=== PATIENT | male | born 1955 | race Caucasian/White ===

== ENCOUNTER 2017-11-02 15:51 | Emergency (ER) | payer BC, SELFPAY ==
[2017-11-02 15:53] VITALS: BP 177/110; PULSE 59; RESP 18; TEMP 37.1; O2SAT 99; BMI 25.0
--- NOTE | 2017-11-02 17:06 | CT_ITS ---
STUDY: CT ABDOMEN AND PELVIS WITHOUT CONTRAST REASON FOR EXAM: Male, 62 years old. Left flank pain. RADIATION DOSAGE (If Supplied By Facility): CTDIvol = ( 6.83 ) mGy, DLP = ( 324.01 ) mGycm TECHNIQUE: Transaxial images were obtained from the dome of the diaphragm to the symphysis pubis without oral contrast, and without intravenous contrast. Sagittal and coronal images were reconstructed. Individualized dose optimization techniques were used for this CT. COMPARISON: None. FINDINGS: Within the lingula there is a 3.7 cm subpleural nodule. There are coronary artery calcifications present. Normal liver. Normal gallbladder and extrahepatic biliary system. Normal spleen. Normal pancreas. Normal bilateral adrenal glands. Normal right kidney. Normal left kidney. There is a small hiatal hernia. Normal small intestine. Normal colon. The appendix is visualized and appears normal. There is diffuse atherosclerotic calcification of the abdominal aorta, without a demonstrated aneurysm. Normal inferior vena cava. Normal retroperitoneum. Normal urinary bladder. Normal abdominal wall. There are diffuse degenerative changes of the visualized lumbar spine. CT/Abdomen/Pelvis without Cont IMPRESSION: No acute process identified. Atherosclerosis. Small hiatal hernia. Electronically Signed: Yanna Hamilton MD at 17:56 EST Tel , Service support ,
[2017-11-02 18:12] LABS: Absolute Lymphocyte Count 2.23 X10^3/ul (0.83-4.51); Absolute Neutrophil Count 3.9 X10^3/uL (2.0-7.7); Basophil# 0.03 X10^3/uL; Basophil% 0.4 % (0-1); Eosinophils% 2.9 % (0-5); Hemoglobin 15.5 g/dl (13.0-16.5); Lymphocyte # 2.23 X10^3/ul (4.0); Lymphocyte % 32.2 % (19-41); Mean Corp Hgb Conc 33.7 g/gl (32-36); Mean Corpuscular Hgb 33.4 pg (27.0-32.0); Mean Corpuscular Volume 99.1 fL (80-94); Mean Platelet Vol. 12.3 fl (6.2-12.0); Monocyte# 0.59 X10^3/uL; Monocyte% 8.5 % (0-10); Neutrophil # 3.86 X10^3/uL (2.7-7.7); Neutrophil % 55.9 % (47-70); Platelet Count 167 K/mm3 (150-450); RBC Distribution Width CV 12.7 % (11.6-14.6); RBC Distribution Width SD 46.3 fl (35.1-43.9); Red Blood Count 4.64 M/mm3 (4.6-6.2); White Blood Count 6.9 K/mm3 (4.4-11.0)
[2017-11-02 18:15] LABS: POSITIVE COUNT NO; POSITIVE DIFFERENTIAL NO; POSITIVE MORPHOLOGY NO
[2017-11-02 18:22] LABS: Anion Gap 9 (5-15); BUN 14 mg/dL (7-18); BUN/Creat Ratio 15.4 RATIO (10-20); Calcium,Total 8.5 mg/dL (8.5-10.1); Chloride 105 mmol/L (98-107); Creatinine, Serum 0.91 mg/dL (0.70-1.30); EST Glomerular Filtration Rate 91 mL/min (>60); Est Glom Filt Rate - Afr Amer 110 mL/min (>60); Estimated Creatinine Clearance 86.32 ml/min; Glucose 98 mg/dL (74-106); Potassium 4.1 mmol/L (3.5-5.1); Sodium Level 141 mmol/L (136-145)
--- NOTE | 2017-11-02 18:33 | ED.DCSUM_ITS ---
- ER Visit Summary Date of Service: 11/02/17 Chief Complaint: [Left flank pain] History of Present Illness: The patient is a 62 M [presents to the emergency department with 2 week history of back pain. Patient works as an electrician constructor supervisor and thought maybe he just pulled a muscle. Patient states the pain started to radiate to the left flank and still has across the lower back as well. Patient denies urinary symptoms. Patient denies fever. Patient denies any trauma otherwise. Patient denies any pain radiating down his legs. Patient denies numbness or tingling in extremities. The pain seems to be somewhat positional and that he feels better when he is standing and walking around. Patient has not had recent illness. He denies a pleuritic component.] Physical Examination: [HEENT-PERRLA, EOMI. Cranial nerves II through XII grossly intact. TMs clear. Mucous membranes moist. No adenopathy. Cardiovascular-regular rate and rhythm without murmur or ectopy Lungs-clear to auscultation, chest wall stable without crepitus or subcu emphysema Abdomen-normoactive bowel sounds, soft, nontender, no rebound or rigidity, no peritoneal signs. Back exam-patient has some mild tenderness over lumbar paraspinal musculature and left leg. No tenderness over the thoracic or lumbar spine. Patient has negative straight leg raises. Deep tendon reflexes are plus 2 out of 4 bilaterally at the patella and Achilles. Patient has normal L5 extension. Patient has normal sensation to light touch. Extremities-intact ?4, normal range of motion, normal pulses, atraumatic] Test Results: [CBC with differential was normal. Chemistries were normal. Patient had a urine dip at the urgent care prior to coming the emergency department which was normal. CT flank showed nothing acute.] Emergency Department Course and Treatment: [Patient initially did not want anything for pain.] Treatment Plan: Patient will be started on Naprosyn and Flexeril. Patient advised to follow-up with his primary care physician within next 5-7 days.] Disposition: [Discharged to home in stable condition. Patient advised to return if worsening pain, pain into the legs, weakness in legs, change in bowel or bladder function, or condition should worsen in any way.] Impression: ] Back/flank pain-etiology uncertain This note was generated with [employer] software. It may contain incorrect words, spelling, and punctuation that were not noted in review of the chart prior to signing ED Disposition - Plan for ED Patient: Chief Complaint: Flank Pain Referrals: River Caro MD [Primary Care Provider] -
--- NOTE | 2017-11-02 18:33 | ED.DEP ---
ED Disposition - Plan for ED Patient: Chief Complaint: Flank Pain Instructions: ED Flank Pain Uncertain Cause Prescriptions: Naproxen [Naprosyn] 500 mg PO BID PRN #20 tab Cyclobenzaprine [Flexeril] 10 mg PO TID PRN #20 tab PRN Reason: Muscle Spasm Referrals: River Caro MD [Primary Care Provider] - 5-7 Days
[2017-11-02 18:51] VITALS: BP 156/70; PULSE 80; RESP 14; O2SAT 98
[2017-11-02 19:20] LABS: Bacteria 0 SEEN /hpf (None Seen); Squamous Epithelial Cells - UA 0 SEEN /hpf (0-5); White Blood Cells 0 SEEN /hpf (0-5)
[2017-11-02 19:55] LABS: Color, Urine Yellow (Yellow); Glucose, Dipstick Normal (Normal); Ketone-Dipstick Negative (Negative); Leukocyte Esterase-Dipstick Negative /ul (Negative); Nitrite-Dipstick Negative (Negative); Occult Blood-Urine Negative /ul (Negative); Protein-Dipstick Negative (Negative); Urine Bilirubin Dipstick Negative (Negative); Urine Clarity Clear (Clear); Urine Urobilinogen Normal (Normal)
[2017-11-02 20:03] LABS: Red Blood Cells-Urine 0-5 SEEN /hpf (0-5)
[2017-11-02 20:04] LABS: Mucous, Urine 1+ /hpf (<or=2+)
== END 2017-11-02 18:58 | disposition home or self-care (01) ==
LOC: ED 17:27
PROVIDERS: Emergency Provider Emergency Medicine; Family Provider Family Medicine; PCP Family Medicine
DX: R10.9 Unspecified abdominal pain (principal); M54.9 Dorsalgia, unspecified; I10 Essential (primary) hypertension
CPT/HCPCS: 74176; 80048; 81001; 85025; 99284; A4216